=== PATIENT | male | born 1970 | race Caucasian/White ===

== ENCOUNTER 2016-12-24 17:53 | Emergency (ER) | payer OTHER ==
[~2016-12-24] VITALS: Ht 188 cm; Wt 135.3 kg
[2016-12-24] MEDS ORDERED: ULTRAM50 MG PO (20:34)
[2016-12-24 20:40] VITALS: BP 163/116
== END 2016-12-24 20:40 | disposition home or self-care (01) ==
LOC: EME 17:53
PROC: 2W3MX1Z Immobilization of Left Lower Extremity using Splint (ICD-10-PCS; principal; 2016-12-24)
DX: S92.255A Nondisplaced fracture of navicular [scaphoid] of left foot, initial encounter for closed fracture (principal); W20.8XXD Other cause of strike by thrown, projected or falling object, subsequent encounter; I10 Essential (primary) hypertension; F17.200 Nicotine dependence, unspecified, uncomplicated
CPT/HCPCS: 73630; 99281; 99283

== ENCOUNTER 2016-12-24 23:16 | Emergency (ER) | payer OTHER ==
[~2016-12-24] VITALS: Ht 188 cm; Wt 136.4 kg
[~2016-12-24 23:16] MED LIST: ULTRAM50 MG PO
[2016-12-25 01:03] VITALS: BP 163/101
== END 2016-12-25 01:13 | disposition home or self-care (01) ==
LOC: EME 23:16
PROC: 0HQFXZZ Repair Right Hand Skin, External Approach (ICD-10-PCS; principal; 2016-12-25)
DX: S61.216A Laceration without foreign body of right little finger without damage to nail, initial encounter (principal); I10 Essential (primary) hypertension; W23.0XXA Caught, crushed, jammed, or pinched between moving objects, initial encounter; F17.200 Nicotine dependence, unspecified, uncomplicated
CPT/HCPCS: 73140; 99281; 99284; S0020

== ENCOUNTER 2017-05-06 22:42 | Emergency (ER) | payer BC ==
[~2017-05-06] VITALS: Ht 188 cm; Wt 132.9 kg
[2017-05-06] MEDS ORDERED: BACTRIM,SEPT1 TABLET PO (23:50)
[2017-05-06] MEDS ORDERED: KEFLEX500 MG PO (23:50)
[2017-05-07 00:09] VITALS: BP 140/91
== END 2017-05-07 00:09 | disposition home or self-care (01) ==
LOC: RME 22:42 → EME 22:42 → RME 05-07 00:09
DX: L02.411 Cutaneous abscess of right axilla (principal); R00.0 Tachycardia, unspecified; F17.200 Nicotine dependence, unspecified, uncomplicated
CPT/HCPCS: 99281; 99284